=== PATIENT | male | born 1940 | race Caucasian/White ===

== ENCOUNTER 2017-06-09 19:42 | Emergency (ER) | payer MEDICARE, OTHER ==
[2017-06-09 19:45] VITALS: BP 158/75; PULSE 84; RESP 16; TEMP 98.3; O2SAT 97
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
== END 2017-06-09 22:10 | disposition home or self-care (01) ==
LOC: NEPD 19:42
DX: Z45.2 Encounter for adjustment and management of vascular access device (principal)
CPT/HCPCS: 99281